=== PATIENT | female | born 1975 | race African-American/Black ===

== ENCOUNTER → 2017-02-16 | Outpatient (CLI) | payer OTHER ==
--- NOTE | 2017-02-16 17:04 | RADRPT ---
EXAM DATE/TIME: 02/16/2017 14:46 [place] COMPARISON: No previous studies available for comparison. INDICATIONS : Pelvic pain and bleeding. MEDICAL HISTORY : Pelvic pain. Vaginal bleeding. Right tubal , 2016. SURGICAL HISTORY : Right fallopian tube removed. ENCOUNTER: Initial ACUITY: 1 year PAIN SCORE: 4/10 LOCATION: Bilateral pelvis MEASUREMENTS: UTERUS: 8.7 x 6.1 x 8.5 cm ENDOMETRIAL STRIPE: 11 mm RIGHT OVARY: 3.0 x 1.4 x 2.4 cm LEFT OVARY: 3.3 x 2.4 x 2.6 cm FINDINGS: UTERUS: Bulky heterogeneous fibroid uterus. RIGHT OVARY: 8 mm cyst LEFT OVARY: 16 mm cyst MISCELLANEOUS: No free fluid. CONCLUSION: Fibroid uterus. Tiny bilateral ovarian cysts. Ion Latif MD on February 16, 2017 at 16:58 Board Certified Radiologist. This report was verified electronically.
== END ==
LOC: HRAD 14:23
PROVIDERS: ATTEND Nurse Practitioner Family
DX: D25.9 Leiomyoma of uterus, unspecified (principal)
CPT/HCPCS: 76830; 76856

== ENCOUNTER → 2017-03-13 | Outpatient (CLI) | payer OTHER ==
[2017-03-13 16:07] LABS: AUTOMATED NEUTROPHIL # 3.1 TH/MM3 (1.8-7.7); BASOPHIL % 0.6 % (0.0-2.0); EOSINOPHIL # 0.1 TH/MM3 (0-0.4); EOSINOPHIL % 1.9 % (0.0-4.0); HEMATOCRIT 35.1 % (35.0-46.0); HEMO FLAGS DIFF FINAL; LYMPH % 36.5 % (9.0-44.0); MEAN CELL VOLUME 96.4 FL (80.0-100.0); MEAN CORPUSCULAR HEMOGLOBIN 32.4 PG (27.0-34.0); MEAN CORPUSCULAR HGB CONC 33.6 % (32.0-36.0); MONO % 6.4 % (0.0-8.0); NEUT % 54.6 % (16.0-70.0); PLATELET COUNT 284 TH/MM3 (150-450); RED BLOOD COUNT 3.64 MIL/MM3 (4.00-5.30); RED CELL DISTRIBUTION WIDTH 13.7 % (11.6-17.2); WHITE BLOOD COUNT 5.6 TH/MM3 (4.0-11.0)
[2017-03-13 16:28] LABS: ALT (GPT) 20 U/L (10-53); ANION GAP 9 MEQ/L (5-15); AST (GOT) 26 U/L (15-37); BICARBONATE 23.4 MEQ/L (21.0-32.0); BLOOD UREA NITROGEN 15 MG/DL (7-18); CHLORIDE 109 MEQ/L (98-107); GLOMERULAR FILTRATION RATE 113 ML/MIN (>89); GLUCOSE,FASTING 81 MG/DL (74-99); POTASSIUM 3.8 MEQ/L (3.5-5.1); SODIUM (NA) 141 MEQ/L (136-145)
[2017-03-13 16:34] LABS: ALKALINE PHOSPHATASE 73 U/L (45-117); HDL CHOLESTEROL 65.1 MG/DL (40.0-60.0); LDL CHOLESTEROL 105 MG/DL (0-99); TOTAL BILIRUBIN ADULT 0.5 MG/DL (0.2-1.0)
== END ==
LOC: CLAB 15:29
PROVIDERS: ATTEND Family Medicine
DX: O09.10 Supervision of pregnancy with history of ectopic pregnancy, unspecified trimester (principal); N83.209 Unspecified ovarian cyst, unspecified side; D25.9 Leiomyoma of uterus, unspecified
CPT/HCPCS: 36415; 80053; 80061; 84443; 85025

== ENCOUNTER 2017-07-22 11:56 | Emergency (ER) | payer OTHER ==
[~2017-07-22] VITALS: Ht 167.6 cm; Wt 78.0 kg
[2017-07-22 12:08] VITALS: BP 152/92; PULSE 67; RESP 18; O2SAT 100
[2017-07-22] MEDS ORDERED: IBUP1TAB7 PO (12:29)
[2017-07-22] MEDS ORDERED: BACT800T5 PO (12:29)
[2017-07-22] MEDS ORDERED: LIDOCAINE HCL 1% 50 ML VIAL INFIL ONE (12:30)
--- NOTE | 2017-07-22 12:30 | PD ---
HPI Chief Complaint: Laceration/Skin Injury Time Seen by Provider: 12:16 Travel History International Travel<30 days: No Contact w/Intl Traveler<30days: No Traveled to known affect area: No History of Present Illness HPI 41-year-old female presents to the emergency department via EMS with complaint of a laceration to her left wrist from hair clippers. She bumped into her boyfriend all he was cutting his hair and he accidentally cut her. Unknown tetanus status and declines tetanus update at this time. Denies paresthesias, loss of sensation, decreased range of motion, decreased strength to the affected extremity and hand. Denies suicidal attempt and characteristics of the laceration are consistent with the patient's story. Has not taken any medication or tried any treatments to alleviate her symptoms. Has applied a bandage and pressure to control bleeding. No known relieving or aggravating factors. Symptoms are mild in severity. No known allergies. Has no other medical complaints. No other modifying factors or associated signs and symptoms. PFSH Past Medical History Asthma: Yes Cancer: No Cardiovascular Problems: No Chemotherapy: No COPD: No Diminished Hearing: No Endocrine: No Genitourinary: No Immune Disorder: No Musculoskeletal: No Neurologic: No Psychiatric: No Reproductive: No Respiratory: Yes Radiation Therapy: No Sickle Cell Disease: No Sleep Apnea: No ?: Not LMP: 07/21/17 : 0 Past Surgical History Gynecologic Surgery: Yes (RIGHT FALLOPIAN TUBE REMOVED) Other Surgery: Yes Social History Alcohol Use: Yes (DAILY, 4 PACK OF BEER) Tobacco Use: No Substance Use: No (QUIT MONTHS AGO) Allergies-Medications (Allergen,Severity, Reaction): Coded Allergies: No Known Allergies (Verified Adverse Reaction, Unknown, 07/22/17) Reported Meds & Prescriptions Reported Meds & Active Scripts Active Ibuprofen 800 Mg Tab 800 Mg PO Q6HR PRN Bactrim DS (Sulfamethoxazole-Trimethoprim) 800-160 Mg Tab 1 Tab PO BID 7 Days Review of Systems Except as stated in HPI: all other systems reviewed are Neg Physical Exam Narrative GENERAL: Well-nourished, well-developed female patient, in no acute distress SKIN: Warm and dry. Palmar aspect of left wrist and a small area of the palm of the hand with approximately 3-1/2 cm laceration to the medial aspect and bleeding controlled; and with full range of motion to all fingers and full life coach strength; 2+ radial pulse; sensory intact. Clipper prong kaufman noted along the edges of the laceration. HEAD: Atraumatic. Normocephalic. EYES: Pupils equal and round. No scleral icterus. No injection or drainage. ENT: Mucosa pink and moist. Airway patent. NECK: Trachea midline. CARDIOVASCULAR: Regular rate. RESPIRATORY: No accessory muscle use. GASTROINTESTINAL: Rounded. MUSCULOSKELETAL: No obvious deformities. No clubbing. No cyanosis. No edema. NEUROLOGICAL: Awake and alert. Oriented 3. No obvious cranial nerve deficits. Motor grossly within normal limits. Normal speech. PSYCHIATRIC: Appropriate mood and affect; insight and judgment normal. Data Data Last Documented VS Vital Signs Date Time Temp Pulse Resp B/P (MAP) Pulse Ox O2 Delivery O2 Flow Rate FiO2 07/22/17 12:08 67 18 152/92 (112) 100 Orders Orders Lidocaine 1% Inj (50 Ml) (Xylocaine 1% I (07/22/17 12:30) Ed Discharge Order (07/22/17 13:45) [facility] Medical Decision Making Medical Screen Exam Complete: Yes Emergency Medical Condition: Yes Medical Record Reviewed: Yes Differential Diagnosis Laceration, contusion, abrasion Narrative Course 41-year-old female with a laceration to her left wrist. Declines tetanus update. See my procedure note for laceration repair. Ibuprofen and Bactrim prescribed for home. Instructed patient to return to the emergency department or follow-up with primary care provider in 10 days for suture removal. Instructed patient to follow up with primary care provider. Patient verbalizes understanding and agreement with treatment plan. Patient is medically cleared and stable for discharge. Discussed reasons to return to the emergency department. Patient agrees with treatment plan. The patients vital signs are stable and the patient is stable for outpatient follow-up and treatment. Patient discharged home, stable and in no acute distress. Procedures Procedure Narrative LACERATION LOCATION: Palmar aspect of left wrist and a small area of the base of the palm of the hand LENGTH: 3.5 centimeters NUMBER OF STITCHES/RACHNA: 8 simple interrupted sutures REPAIR: The area of the laceration was prepped with Betadine and sterilely draped. The laceration was infiltrated with 1% lidocaine. The wound was copiously irrigated and explored without evidence of foreign body, tendon injury or neurovascular injury. The wound was closed using 4-0 Prolene. This was a single layer repair. A sterile dressing was applied. The patient was advised to keep the dressing clean and dry. Patient tolerated the procedure well. Diagnosis Primary Impression: Laceration of left wrist Qualified Codes: S61.512A - Laceration without foreign body of left wrist, initial encounter Referrals: [facility] Primary Care Physician Patient Instructions: Care For Your Stitches (ED), General Instructions, Laceration (ED) Additional Instructions: Keep area clean and dry Limit left wrist activity to decrease risk of sutures coming undone Ibuprofen or Tylenol as instructed and educated for pain Ice pack to area as needed to decrease pain Return to the emergency department or follow-up with primary care provider in 7- 10 days for suture removal Follow up with primary care provider within 2-4 days Return to the emergency department immediately with worsening of symptoms, particularly if reddened streaks up or down the affected extremity from the suture site, fever, numbness/tingling in the affected extremity, loss of sensation in the affected extremity, severe swelling of the affected Med/Other Pt SpecificInfo: Prescription(s) given Scripts Ibuprofen (Ibuprofen) 800 Mg Tab 800 MG PO Q6HR Y for PAIN, #30 TAB 0 Refills Prov: Vidhya Benjamin 07/22/17 Sulfamethoxazole-Trimethoprim (Bactrim DS) 800-160 Mg Tab 1 TAB PO BID for Infection for 7 Days, #14 TAB 0 Refills Prov: Vidhya Benjamin 07/22/17 Disposition: 01 DISCHARGE HOME Condition: Stable Vidhya Benjamin Jul 22, 2017 12:30
== END 2017-07-22 14:25 | disposition home or self-care (01) ==
LOC: NEPD 11:56
DX: S61.512A Laceration without foreign body of left wrist, initial encounter (principal); J45.909 Unspecified asthma, uncomplicated
CPT/HCPCS: 12002

== ENCOUNTER 2017-08-01 17:52 | Emergency (ER) | payer OTHER ==
[~2017-08-01 17:52] MED LIST: BACT800T5 PO; IBUP1TAB7 PO
[2017-08-01 17:54] VITALS: BP 142/84; PULSE 87; RESP 15; TEMP 98.5; O2SAT 99
--- NOTE | 2017-08-01 18:15 | PD ---
HPI Chief Complaint: Wound/Suture/Staple Re-Check Time Seen by Provider: 18:13 Travel History International Travel<30 days: No Contact w/Intl Traveler<30days: No Traveled to known affect area: No History of Present Illness HPI Pt presented to the ED for removal of stitches to her left inner wrist. she has no other complaints at this time. She denies any fevers, drainage, redness or swelling. PFSH Past Medical History Asthma: Yes Cancer: No Cardiovascular Problems: No Chemotherapy: No COPD: No Diminished Hearing: No Endocrine: No Genitourinary: No Immune Disorder: No Musculoskeletal: No Neurologic: No Psychiatric: No Reproductive: No Respiratory: Yes Radiation Therapy: No Sickle Cell Disease: No Sleep Apnea: No : 0 Past Surgical History Gynecologic Surgery: Yes (RIGHT FALLOPIAN TUBE REMOVED) Other Surgery: Yes Social History Alcohol Use: Yes (DAILY, 4 PACK OF BEER) Tobacco Use: No Substance Use: No (QUIT MONTHS AGO) Allergies-Medications (Allergen,Severity, Reaction): Coded Allergies: No Known Allergies (Verified Adverse Reaction, Unknown, 07/22/17) Reported Meds & Prescriptions Reported Meds & Active Scripts Active Ibuprofen 800 Mg Tab 800 Mg PO Q6HR PRN Bactrim DS (Sulfamethoxazole-Trimethoprim) 800-160 Mg Tab 1 Tab PO BID 7 Days Review of Systems Except as stated in HPI: all other systems reviewed are Neg Skin: Positive Other (stitches to left wrist) Physical Exam Narrative GENERAL: Well developed, well nourished , alert Female. In no acute distress. SKIN: Warm and dry. Well healed, repaired laceration to inner aspect of the left wrist. Wound is well approximated, no drainage, swelling or erythema noted. HEAD: Normocephalic. EYES: No scleral icterus. No injection or drainage. CARDIOVASCULAR: Regular rate RESPIRATORY: No accessory muscle use. MUSCULOSKELETAL: No cyanosis, or edema. Data Data Last Documented VS Vital Signs Date Time Temp Pulse Resp B/P (MAP) Pulse Ox O2 Delivery O2 Flow Rate FiO2 08/01/17 18:22 08/01/17 17:54 98.5 87 15 99 Orders Orders Ed Discharge Order (08/01/17 18:15) MDM Medical Decision Making Medical Screen Exam Complete: Yes Emergency Medical Condition: Yes Interpretation(s) Vital Signs Date Time Temp Pulse Resp B/P (MAP) Pulse Ox O2 Delivery O2 Flow Rate FiO2 08/01/17 18:22 08/01/17 17:54 98.5 87 15 142/84 (103) 99 Differential Diagnosis cellulitis vs normal healing vs suture removal vs other Narrative Course Pt presented to have stitches removed. VSS, no s/s of infection noted on exam. 8 stitches were removed without difficulty. Pt tolerated well. She was advised to follow up with PCP or return to the ED for any new or worsening symptoms. Pt verbalized understanding. Pt is stable for discharge. Diagnosis Primary Impression: Encounter for removal of sutures Referrals: Primary Care Physician Patient Instructions: Acute Wound Care (GEN), General Instructions Additional Instructions: Follow up with primary doctor Apply Antibiotic ointment Return to the ED for any new or worsening symptoms Med/Other Pt SpecificInfo: No Change to Meds Disposition: 01 DISCHARGE HOME Condition: Stable Alma Toney Aug 01, 2017 18:15
== END 2017-08-01 18:23 | disposition home or self-care (01) ==
LOC: NED 17:52
DX: Z48.02 Encounter for removal of sutures (principal); J45.909 Unspecified asthma, uncomplicated
CPT/HCPCS: 99281

== ENCOUNTER 2017-12-20 09:43 | Emergency (ER) | payer SELFPAY ==
[~2017-12-20] VITALS: Ht 167.6 cm; Wt 75.0 kg
[2017-12-20 09:57] VITALS: BP 121/71; PULSE 84; RESP 16; TEMP 98; O2SAT 99
--- NOTE | 2017-12-20 10:16 | PD ---
HPI Chief Complaint: Musculoskeletal Complaint Time Seen by Provider: 10:08 Travel History International Travel<30 days: No Contact w/Intl Traveler<30days: No Traveled to known affect area: No History of Present Illness HPI 42-year-old female presents emergency department for evaluation of right proximal upper extremity pain. Patient states it has been like this for 2 days. Denies any injury. States that she believes she slept with her arm up in bed. Denies any focal deficits weakness. She states pain is constant, ache , moderate in severity. It does not radiate anywhere. No other symptoms to report. History Past Medical Histgory Tetanus Vaccination: > 5 Years Hx Cancer: No Hx Chemotherapy: No Hx Radiation Therapy: No Social History Alcohol Use: Yes (DAILY, 4 PACK OF BEER) Tobacco Use: No Allergies-Medications (Allergen,Severity, Reaction): Coded Allergies: No Known Allergies (Verified Adverse Reaction, Unknown, 12/20/17) Reported Meds & Prescriptions Reported Meds & Active Scripts Active No Active Prescriptions or Reported Medications Review of Systems Except as stated in HPI: all other systems reviewed are Neg Physical Exam Narrative GENERAL: Well-nourished, well-developed female patient in no acute distress SKIN: Focused skin assessment warm/dry. HEAD: Normocephalic. EYES: No scleral icterus. No injection or drainage. NECK: Supple, trachea midline. No JVD or lymphadenopathy. CARDIOVASCULAR: Regular rate and rhythm without murmurs, gallops, or rubs. RESPIRATORY: Breath sounds equal bilaterally. No accessory muscle use. MUSCULOSKELETAL: No cyanosis, or edema. Patient has full flexion-extension of the right elbow. She can supinate and pronate the forearm without difficulty. There is tenderness elicited palpation of the right lateral tricep. No erythema or edema. BACK: Nontender without obvious deformity. No CVA tenderness. Data Data Last Documented VS Vital Signs Date Time Temp Pulse Resp B/P (MAP) Pulse Ox O2 Delivery O2 Flow Rate FiO2 12/20/17 09:57 98.0 84 16 121/71 (88) 99 MDM Medical Screen Exam Complete: Yes Emergency Medical Condition: No Narrative Course Right triceps strain Plan 42-year-old female presents emergency department for evaluation right proximal lower extremity pain. Physical exam is reassuring. There is tenderness elicited to palpation of the right lateral tricep. Patient is counseled on care. At this time there are no urgent or emergent needs medical intervention identified. A medical screening exam was performed: At the time of evaluation the presenting medical condition was determined not to be of an emergent nature. The patient was given the option of receiving additional care, but declined. Patient was given options for additional community resources from which to obtain care. The Patient Has Been advised to seek medical attention for their presenting complaint. The patient has been advised to return to the ER at any time if an emergent condition develops. Primary Impression: Encounter for medical screening examination Scripts No Active Prescriptions or Reported Meds Condition: Erinn Ahuja December 20, 2017 10:16
== END 2017-12-20 10:27 | disposition left against medical advice (07) ==
LOC: NEPK 09:43
DX: M79.601 Pain in right arm (principal)
CPT/HCPCS: 99281